=== PATIENT | female | born 1960 ===

== ENCOUNTER 2017-09-07 10:20 | Emergency (ER) | payer BC, OTHER ==
[2017-09-07 10:29] VITALS: BP 155/88; PULSE 80; RESP 20; TEMP 97; O2SAT 98
--- NOTE | 2017-09-07 10:37 | ED PDOC ---
HPI: CCC, URI, Sore Throat Time Seen by Provider: 09/07/17 10:27 Chief Complaint (Nursing): Dizziness/Lightheaded History Per: Patient Onset/Duration Of Symptoms: Days (2) Current Symptoms Are (Timing): Still Present Location Of Pain: Throat Associated Symptoms: Fever, Sore Throat. denies: Cough Severity: Mild Additional Complaint(s): Sore throat, pain on swallowing x 2 days. Subjective fever. Denies cough. Past Medical History Vital Signs: Last Vital Signs Temp 97 F L 09/07/17 10:26 Pulse 80 09/07/17 10:26 Resp 20 09/07/17 10:26 BP 155/88 H 09/07/17 10:26 Pulse Ox 98 09/07/17 10:26 - Medical History PMH: Diabetes - Family History Family History: States: Unknown Family Hx - Home Medications Home Medications: Ambulatory Orders Medication Instructions Recorded Azithromycin [Zithromax] 250 mg PO DAILY #6 tab 09/07/17 - Allergies Allergies/Adverse Reactions: Allergies Allergy/AdvReac Type Severity Reaction Status Date / Time No Known Allergies Allergy Verified 09/07/17 10:29 Review of Systems Constitutional: Positive for: Fever ENT: Positive for: Throat Pain Respiratory: Negative for: Cough Physical Exam - Physical Exam Appears: Positive for: Non-toxic, No Acute Distress Skin: Positive for: Normal Color, Warm, DRY ENT: Positive for: TM Is/Are (nl), Pharyngeal Erythema. Negative for: Tonsillar Exudate Neck: Positive for: Normal, Painless ROM Cardiovascular/Chest: Positive for: Regular Rate, Rhythm Respiratory: Positive for: CNT, Normal Breath Sounds - ECG O2 Sat by Pulse Oximetry: 98 Disposition - Clinical Impression Clinical Impression: Pharyngitis - Patient ED Disposition Is Patient to be Admitted: No Counseled Patient/Family Regarding: Studies Performed, Diagnosis, Need For Followup, Rx Given - Disposition Referrals: [facility] [Outside] Disposition: Routine/Home Disposition Time: 10:36 Condition: FAIR Prescriptions: Azithromycin [Zithromax] 250 mg PO DAILY #6 tab Instructions: Pharyngitis (ED)
== END 2017-09-07 10:48 | disposition home or self-care (01) ==
LOC: H.ER 10:20
DX: J02.9 Acute pharyngitis, unspecified (principal)

== ENCOUNTER 2018-12-23 23:58 | Emergency (ER) | payer BC, OTHER ==
[2018-12-24 00:11] VITALS: BMI 32.8
[2018-12-24 00:14] VITALS: O2SAT 98
--- NOTE | 2018-12-24 01:36 | ED PDOC ---
HPI: Eye Injury/Pain Time Seen by Provider: 12/24/18 01:05 Chief Complaint (Nursing): Eye Problem Chief Complaint (Provider): Eye Problem History Per: Patient History/Exam Limitations: no limitations Onset/Duration Of Symptoms: Days (x 2) Current Symptoms Are (Timing): Still Present Injury To Eye?: No Quality: Pressure, "Pain" Associated Symptoms: Pain, Decreased Vision, Swelling Additional Complaint(s): 58 year old female with a family history of glaucoma presents to the ED for evaluation of right eye pain and swelling for the last day. Patient reports pain is extreme and it "feels like my eye is going to blow up". She states there has been increasing redness and pressure beginning last night around 7pm associated with nausea. Denies pus or drainage. PMD: Dr. Araujo Past Medical History Reviewed: Historical Data, Nursing Documentation, Vital Signs Vital Signs: Last Vital Signs Temp 98.0 F 12/24/18 00:11 Pulse 89 12/24/18 00:11 Resp 18 12/24/18 00:11 BP 183/83 H 12/24/18 00:11 Pulse Ox 98 12/24/18 00:11 - Medical History PMH: Diabetes - Surgical History Surgical History: No Surg Hx - Family History Family History: States: Unknown Family Hx, Other Other Family History: glaucoma (father) - Home Medications Home Medications: Ambulatory Orders Medication Instructions Recorded Azithromycin [Zithromax] 250 mg PO DAILY #6 tab 09/07/17 Dorzolamide 2%/Timolol 0.5% 1 drop OD BID #1 bottle 12/24/18 [Cosopt Ocumeter Plus 2%-0.5% 10 Ml] Latanoprost 0.005% Opht [XALATAN 1 drp OD HS #1 bottle 12/24/18 2.5 Ml] PrednisoLONE 1% [Pred Forte 1% 2 drop OD QID #1 bottle 12/24/18 Opht Susp] - Allergies Allergies/Adverse Reactions: Allergies Allergy/AdvReac Type Severity Reaction Status Date / Time No Known Allergies Allergy Verified 09/07/17 10:29 Review of Systems ROS Statement: Except As Marked, All Systems Reviewed And Found Negative Eyes: Positive for: Pain, Redness Physical Exam - Reviewed Nursing Documentation Reviewed: Yes Vital Signs Reviewed: Yes - Physical Exam Appears: Positive for: Uncomfortable Head Exam: Positive for: ATRAUMATIC, NORMAL INSPECTION, NORMOCEPHALIC Skin: Positive for: Normal Color, Warm, Dry Eye Exam: Positive for: Normal appearance, Conjunctival injection (right), Other (unable to perform pupillary exam as patient is diverting eye from light; (-) edema, pus or drainage). Negative for: Periorbital swelling Neck: Positive for: Normal, Painless ROM, Supple Cardiovascular/Chest: Positive for: Regular Rate, Rhythm. Negative for: Murmur Respiratory: Positive for: Normal Breath Sounds. Negative for: Respiratory Distress Neurologic/Psych: Positive for: Alert, Oriented (x 3). Negative for: Motor/Sensory Deficits - ECG O2 Sat by Pulse Oximetry: 98 (RA) Pulse Ox Interpretation: Normal Medical Decision Making Medical Decision Makin:25 MDM: workup for glaucoma --Diamox 500 mg Inj --Isopto Carpine 2% ophth solution 1 drop OD --Timoptic 1 drop OD --Morphine 2 mg IVP 01:44 Attempted to use Royer-pen. It could not be calibrated. 02:00 Royer-pen was calibrated and measured intraocular pressure of 58 in right eye. Intraocular pressure needs to be repeated every 30-60 minutes following treatment. 02:[address] Moreland, opthamologist, who recommends Xalatan, Cosopt 1 drop BID and Pred Forte and follow up outpatient. 02:55 Improvement of intraocular pressure, now at 18. Patient reports feeling much better and will follow Dr. Moreland's recommendations for outpatient eye drops. Vision improved in right eye. Patient now able to open eye with lights on without pain. Vision intact to finger discrimination. Peripheral vision intact. Vision intact for both eyes. She will call Dr. Moreland's office when they open in the morning to schedule a follow up appointment. Return parameters discussed. Scribe Attestation: Documented by Danae Laura acting as a scribe for Olga Lidia Walsh MD Provider Scribe Attestation: All medical record entries made by the Scribe were at my direction and personally dictated by me. I have reviewed the chart and agree that the record accurately reflects my personal performance of the history, physical exam, medical decision making, and the department course for this patient. I have also personally directed, reviewed, and agree with the discharge instructions and disposition. Disposition - Clinical Impression Clinical Impression: Pain, eye, right, Glaucoma (increased eye pressure) - Patient ED Disposition Is Patient to be Admitted: No - Disposition Referrals: Montrell Olsen MD [Staff Provider] - Disposition: Routine/Home Disposition Time: 03:02 Condition: IMPROVED Additional Instructions: Take medications as prescribed. Follow up with Dr. Olsen in 24 to 48 hours and call when his office opens today to schedule your appointment. Return to the emergency department if symptoms return or worsen or if new symptoms develop. Prescriptions: Dorzolamide 2%/Timolol 0.5% [Cosopt Ocumeter Plus 2%-0.5% 10 Ml] 1 drop OD BID #1 bottle Latanoprost 0.005% Opht [XALATAN 2.5 Ml] 1 drp OD HS #1 bottle PrednisoLONE 1% [Pred Forte 1% Opht Susp] 2 drop OD QID #1 bottle Instructions: Glaucoma, How to Use Eye Drops Forms: [employer] [facility] (Bengali), [employer] ED School/Work Excuse Print Language: INDONESIAN
[2018-12-24] MEDS: Pilocarpine 2% Opht Soln OD STA (02:16)
[2018-12-24 03:16] VITALS: BP 162/86; PULSE 79; RESP 16; TEMP 98.2
== END 2018-12-24 03:25 | disposition home or self-care (01) ==
LOC: H.ER 23:58
DX: H40.051 Ocular hypertension, right eye (principal); H40.9 Unspecified glaucoma; E11.9 Type 2 diabetes mellitus without complications
CPT/HCPCS: 99283; J1120